=== PATIENT | male | born 1940 | race Two or more races ===

== ENCOUNTER → 2019-11-21 | Outpatient (CLI) | payer OTHER ==
[~2019-11-21] MED LIST: ALTACE10 M1; SIMVASTATIN20 MG
== END | disposition home or self-care (01) ==
LOC: RAD 11:13
DX: M50.10 Cervical disc disorder with radiculopathy, unspecified cervical region (principal)

== ENCOUNTER 2024-07-29 10:33 | Outpatient (CLI) | payer OTHER | END 2024-07-29 10:39 | disposition home or self-care (01) | LOC: RAD 10:33 | PROVIDERS: ATTEND Physical Medicine & Rehabilitation | DX: M54.2 Cervicalgia (principal); M54.50 Low back pain, unspecified ==